=== PATIENT | male | born 1970 | race Caucasian/White ===

== ENCOUNTER 2021-11-13 20:30 | Inpatient (IN) | payer OTHER, SELFPAY ==
[~2021-11-13 20:30] MED LIST: Iopamidol-370 76% 500 ML 1 ML ONE
[2021-11-13 21:05] LABS: #Eosinphils 0.1 thou/uL (0.0-0.7); #Lymphocytes 1.2 thou/uL (1.20-3.40); #Monocytes 0.4 thou/uL (0.11-0.59); #Neutrophils 5.4 thou/uL (1.40-6.50); %Basophils 0.1 % (0.0-1.0); %Eosinophils 1.8 % (0.0-10.0); %Lymphocytes 17.1 % (21.0-51.0); %Monocytes 6.1 % (0.0-10.0); %Neutrophils 74.8 % (42.0-75.0); Hemoglobin 12.4 g/dL (14.0-18.0); Mean Corpuscular HGB CONC 33.2 g/dL (32.0-36.0); Mean Corpuscular Hemoglobin 27.6 pg (27.0-31.0); Mean Corpuscular Volume 83.3 fL (78.0-98.0); Mean Platelet Volume 8.3 fL (7.4-10.4); Platelet Count 186 thou/uL (130-400); RBC Distribution Width 15.7 % (11.5-14.5); Red Blood Cell (RBC) Count 4.49 mill/uL (4.70-6.10); White Blood Cell (WBC) Count 7.2 thou/uL (4.8-10.8)
[2021-11-13 21:15] LABS: INR-International Normal Ratio 2.4; Prothrombin Time 26.4 sec (12.0-14.7)
[2021-11-13 21:16] LABS: PTT 38.6 sec (22.9-36.1)
[2021-11-13 21:28] LABS: ALT (SGPT) 25 U/L (8-55); AST (SGOT) 20 U/L (5-34); Albumin 3.6 g/dL (3.5-5.0); Alkaline Phosphatase 113 U/L (40-110); Anion Gap 13 mmol/L (10-20); BUN (Urea Nitrogen) 18 mg/dL (8.9-20.6); Bilirubin, Total 0.8 mg/dL (0.2-1.2); Calc. Creatinine Clearance 0 mL/min (70-130); Calcium 9.5 mg/dL (7.8-10.44); Carbon Dioxide 24 mmol/L (22-29); Chloride 103 mmol/L (98-107); Globulin 3.4 g/dL (2.4-3.5); Glucose 149 mg/dL (70-105); Potassium 4.3 mmol/L (3.5-5.1); Sodium 136 mmol/L (136-145)
[2021-11-13] MEDS ORDERED: Morphine 4 MG/ML VIAL ONE (21:48)
[2021-11-13] MEDS ORDERED: Ondansetron PF 4 MG/2 ML Vial ONE (21:48)
[2021-11-13] MEDS ORDERED: Aspirin Chewable 81 MG TAB ONE (22:06)
[2021-11-13] MEDS ORDERED: Ondansetron ODT 4 MG TAB SL PRN (23:15)
[2021-11-13] MEDS ORDERED: Ondansetron PF 4 MG/2 ML Vial IVP PRN (23:15)
[2021-11-14] MEDS: Morphine 4 MG/ML VIAL SLOW IVP PRN ×3 (04:45→18:38)
[2021-11-14] MEDS ORDERED: Acetaminophen 325 MG TAB PO PRN (04:46)
[2021-11-14] MEDS ORDERED: Acetaminophen 650 MG Suppository PR PRN (04:46)
[2021-11-14] MEDS ORDERED: hydrALAZINE 20 MG/ML VIAL SLOW IVP PRN (04:49)
[2021-11-14] MEDS ORDERED: Dextrose 50% Abboject 50 ML SYRINGE SLOW IVP PRN (04:59)
[2021-11-14] MEDS ORDERED: Dextrose 5% in Water 1,000 ML IV PRN (04:59)
[2021-11-14] MEDS ORDERED: HumaLOG 300 UNITS/3 ML VIAL SC PRN (04:59)
[2021-11-14 09:59] LABS: INR-International Normal Ratio 2.3; Prothrombin Time 25.6 sec (12.0-14.7)
[2021-11-14] MEDS ORDERED: levETIRAcetam 500 MG TAB PO SCH (12:45)
[2021-11-14 19:22] LABS: SARS-CoV-2 PCR by NAA Not Detected (NotDetected)
[2021-11-14] MEDS: Atorvastatin Calcium 40 MG TAB PO SCH (20:51)
[2021-11-14] MEDS: Carvedilol 6.25 MG TAB PO SCH ×2 (20:52→20:58)
[2021-11-14] MEDS: levETIRAcetam 500 MG TAB PO SCH (20:55)
[2021-11-14] MEDS: Enoxaparin Sodium 100 MG/ML SYRINGE SC SCH (20:59)
[2021-11-14] MEDS: NPH, Human Insulin Isophane 300 UNIT/3 ML VIAL SC SCH (22:40)
[2021-11-15 05:12] LABS: #Eosinphils 0.4 thou/uL (0.0-0.7); #Lymphocytes 1.5 thou/uL (1.20-3.40); #Monocytes 0.7 thou/uL (0.11-0.59); #Neutrophils 5.1 thou/uL (1.40-6.50); %Basophils 0.4 % (0.0-1.0); %Eosinophils 5.7 % (0.0-10.0); %Lymphocytes 19.3 % (21.0-51.0); %Monocytes 8.5 % (0.0-10.0); Hemoglobin 11.4 g/dL (14.0-18.0); Mean Corpuscular HGB CONC 32.7 g/dL (32.0-36.0); Mean Corpuscular Hemoglobin 27.6 pg (27.0-31.0); Mean Corpuscular Volume 84.2 fL (78.0-98.0); Mean Platelet Volume 8.2 fL (7.4-10.4); Platelet Count 164 thou/uL (130-400); RBC Distribution Width 16.4 % (11.5-14.5); Red Blood Cell (RBC) Count 4.15 mill/uL (4.70-6.10); White Blood Cell (WBC) Count 7.7 thou/uL (4.8-10.8)
[2021-11-15 05:17] LABS: INR-International Normal Ratio 2.3; Prothrombin Time 25.9 sec (12.0-14.7)
[2021-11-15 05:32] LABS: Anion Gap 11 mmol/L (10-20); BUN (Urea Nitrogen) 16 mg/dL (8.9-20.6); Calc. Creatinine Clearance 162 mL/min (70-130); Calcium 8.7 mg/dL (7.8-10.44); Carbon Dioxide 25 mmol/L (22-29); Chloride 101 mmol/L (98-107); Cholesterol 104 mg/dl (< 200 Desired); Glucose 131 mg/dL (70-105); HDL Cholesterol 35 mg/dL (>60 Neg Risk); LDL Cholesterol, Calculated 52 mg/dL; Potassium 4.1 mmol/L (3.5-5.1); Sodium 133 mmol/L (136-145); Triglycerides 87 mg/dL (Less than 150)
[2021-11-15] MEDS: Morphine 4 MG/ML VIAL SLOW IVP PRN ×2 (06:51→15:59)
[2021-11-15] MEDS: Carvedilol 6.25 MG TAB PO SCH ×2 (10:14→21:38)
[2021-11-15] MEDS: Enoxaparin Sodium 100 MG/ML SYRINGE SC SCH ×2 (10:14→20:55)
[2021-11-15] MEDS: levETIRAcetam 500 MG TAB PO SCH ×2 (10:14→20:55)
[2021-11-15] MEDS: Lisinopril 2.5 MG TAB PO SCH (10:14)
[2021-11-15] MEDS: Spironolactone 25 MG TAB PO SCH (10:14)
[2021-11-15] MEDS: Furosemide 20 MG TAB PO SCH (10:14)
[2021-11-15] MEDS: Ascorbic Acid 500 mg Chewable Tablet PO SCH (10:14)
[2021-11-15] MEDS: NPH, Human Insulin Isophane 300 UNIT/3 ML VIAL SC SCH ×2 (10:15→21:37)
[2021-11-15] MEDS: Atorvastatin Calcium 40 MG TAB PO SCH ×2 (20:53→20:54)
[2021-11-15] MEDS ORDERED: Bisacodyl 5 MG TAB PO SCH (22:30)
[2021-11-16] MEDS: Morphine 4 MG/ML VIAL SLOW IVP PRN ×3 (02:41→21:37)
[2021-11-16 04:44] LABS: INR-International Normal Ratio 1.8; Prothrombin Time 21.5 sec (12.0-14.7)
[2021-11-16] MEDS: Ascorbic Acid 500 mg Chewable Tablet PO SCH (08:55)
[2021-11-16] MEDS: levETIRAcetam 500 MG TAB PO SCH ×2 (08:56→20:32)
[2021-11-16] MEDS: Carvedilol 6.25 MG TAB PO SCH ×2 (08:56→20:32)
[2021-11-16] MEDS: Enoxaparin Sodium 100 MG/ML SYRINGE SC SCH ×2 (08:59→20:31)
[2021-11-16] MEDS: Spironolactone 25 MG TAB PO SCH (09:00)
[2021-11-16] MEDS: Furosemide 20 MG TAB PO SCH (09:00)
[2021-11-16] MEDS ORDERED: Bisacodyl 5 MG TAB PO SCH (09:00)
[2021-11-16] MEDS: NPH, Human Insulin Isophane 300 UNIT/3 ML VIAL SC SCH ×2 (09:01→20:32)
[2021-11-16] MEDS: HumaLOG 300 UNITS/3 ML VIAL SC PRN ×2 (09:01→11:51)
[2021-11-16] MEDS: Lisinopril 2.5 MG TAB PO SCH (09:02)
[2021-11-16] MEDS: Bisacodyl 5 MG TAB PO SCH (09:03)
[2021-11-16] MEDS: Atorvastatin Calcium 40 MG TAB PO SCH (20:32)
[2021-11-17] MEDS: Morphine 4 MG/ML VIAL SLOW IVP PRN ×3 (05:18→20:50)
[2021-11-17 05:41] LABS: #Eosinphils 0.2 thou/uL (0.0-0.7); #Lymphocytes 1.1 thou/uL (1.20-3.40); #Monocytes 0.3 thou/uL (0.11-0.59); #Neutrophils 4.1 thou/uL (1.40-6.50); %Basophils 0.5 % (0.0-1.0); %Eosinophils 3.5 % (0.0-10.0); %Lymphocytes 19.4 % (21.0-51.0); %Monocytes 5.4 % (0.0-10.0); %Neutrophils 71.2 % (42.0-75.0); Hemoglobin 11.3 g/dL (14.0-18.0); Mean Corpuscular Hemoglobin 27.1 pg (27.0-31.0); Mean Corpuscular Volume 84.7 fL (78.0-98.0); Mean Platelet Volume 8.3 fL (7.4-10.4); Platelet Count 168 thou/uL (130-400); RBC Distribution Width 16.3 % (11.5-14.5); Red Blood Cell (RBC) Count 4.17 mill/uL (4.70-6.10); White Blood Cell (WBC) Count 5.8 thou/uL (4.8-10.8)
[2021-11-17 05:48] LABS: INR-International Normal Ratio 1.4; Prothrombin Time 17.6 sec (12.0-14.7)
[2021-11-17 06:11] LABS: Anion Gap 12 mmol/L (10-20); BUN (Urea Nitrogen) 16 mg/dL (8.9-20.6); Calc. Creatinine Clearance 168 mL/min (70-130); Calcium 8.6 mg/dL (7.8-10.44); Carbon Dioxide 24 mmol/L (22-29); Chloride 104 mmol/L (98-107); Glucose 121 mg/dL (70-105); Potassium 4.1 mmol/L (3.5-5.1); Sodium 136 mmol/L (136-145)
[2021-11-17] MEDS: NPH, Human Insulin Isophane 300 UNIT/3 ML VIAL SC SCH ×2 (15:25→20:43)
[2021-11-17] MEDS: Lisinopril 2.5 MG TAB PO SCH (15:27)
[2021-11-17] MEDS: Ascorbic Acid 500 mg Chewable Tablet PO SCH (15:28)
[2021-11-17] MEDS: levETIRAcetam 500 MG TAB PO SCH ×2 (15:28→20:42)
[2021-11-17] MEDS: Furosemide 20 MG TAB PO SCH (15:28)
[2021-11-17] MEDS: Spironolactone 25 MG TAB PO SCH (15:28)
[2021-11-17] MEDS: Bisacodyl 5 MG TAB PO SCH (15:29)
[2021-11-17] MEDS: Carvedilol 6.25 MG TAB PO SCH ×2 (15:29→20:41)
[2021-11-17] MEDS: HumaLOG 300 UNITS/3 ML VIAL SC PRN (17:36)
[2021-11-17] MEDS: Atorvastatin Calcium 40 MG TAB PO SCH (20:42)
[2021-11-18] MEDS: Morphine 4 MG/ML VIAL SLOW IVP PRN ×2 (05:09→10:02)
[2021-11-18] MEDS: Bisacodyl 5 MG TAB PO SCH (09:58)
[2021-11-18] MEDS: NPH, Human Insulin Isophane 300 UNIT/3 ML VIAL SC SCH ×2 (10:04→20:56)
[2021-11-18] MEDS: Ascorbic Acid 500 mg Chewable Tablet PO SCH (10:05)
[2021-11-18] MEDS: Furosemide 20 MG TAB PO SCH (10:05)
[2021-11-18] MEDS: Carvedilol 6.25 MG TAB PO SCH ×2 (10:05→20:56)
[2021-11-18] MEDS: Lisinopril 2.5 MG TAB PO SCH (10:06)
[2021-11-18] MEDS: levETIRAcetam 500 MG TAB PO SCH ×2 (10:06→20:56)
[2021-11-18] MEDS: Spironolactone 25 MG TAB PO SCH (10:06)
[2021-11-18 13:25] LABS: INR-International Normal Ratio 1.3; Prothrombin Time 16.8 sec (12.0-14.7)
[2021-11-18] MEDS: HYDROcodone/Acetaminophen 5/325 mg Tablet PO PRN ×2 (15:38→21:00)
[2021-11-18] MEDS: Warfarin Sodium 2 MG TAB PO SCH (16:21)
[2021-11-18] MEDS: Atorvastatin Calcium 40 MG TAB PO SCH (20:56)
[2021-11-18] MEDS: Enoxaparin Sodium 100 MG/ML SYRINGE SC SCH (20:58)
[2021-11-19] MEDS: Morphine 4 MG/ML VIAL SLOW IVP PRN ×2 (05:04→21:06)
[2021-11-19 05:15] LABS: INR-International Normal Ratio 1.4
[2021-11-19] MEDS ORDERED: Non-Formulary Item 1 EACH (Warfarin Sodium [Warfarin Sodium] 4 MG Tablet) PO SCH (09:00)
[2021-11-19] MEDS: Furosemide 20 MG TAB PO SCH (09:02)
[2021-11-19] MEDS: Ascorbic Acid 500 mg Chewable Tablet PO SCH (09:02)
[2021-11-19] MEDS: Lisinopril 2.5 MG TAB PO SCH (09:02)
[2021-11-19] MEDS: Spironolactone 25 MG TAB PO SCH (09:02)
[2021-11-19] MEDS: Enoxaparin Sodium 100 MG/ML SYRINGE SC SCH ×3 (09:03→21:06)
[2021-11-19] MEDS: levETIRAcetam 500 MG TAB PO SCH ×2 (09:03→21:06)
[2021-11-19] MEDS: Bisacodyl 5 MG TAB PO SCH (09:03)
[2021-11-19] MEDS: Carvedilol 6.25 MG TAB PO SCH ×2 (09:03→21:07)
[2021-11-19] MEDS: NPH, Human Insulin Isophane 300 UNIT/3 ML VIAL SC SCH ×2 (09:06→21:05)
[2021-11-19] MEDS: HYDROcodone/Acetaminophen 5/325 mg Tablet PO PRN ×2 (09:27→18:30)
[2021-11-19] MEDS: Warfarin Sodium 2 MG TAB PO SCH (18:31)
[2021-11-19] MEDS: Atorvastatin Calcium 40 MG TAB PO SCH (21:05)
[2021-11-19] MEDS ORDERED: Polyethylene Glycol 3350 17 GM Packet PO SCH (21:41)
[2021-11-20] MEDS: HYDROcodone/Acetaminophen 5/325 mg Tablet PO PRN ×3 (02:41→14:29)
[2021-11-20 05:55] LABS: INR-International Normal Ratio 1.5; Prothrombin Time 17.9 sec (12.0-14.7)
[2021-11-20] MEDS: NPH, Human Insulin Isophane 300 UNIT/3 ML VIAL SC SCH ×2 (08:53→23:25)
[2021-11-20] MEDS: Enoxaparin Sodium 100 MG/ML SYRINGE SC SCH ×2 (08:54→21:32)
[2021-11-20] MEDS: Bisacodyl 5 MG TAB PO SCH (08:54)
[2021-11-20] MEDS: Carvedilol 6.25 MG TAB PO SCH ×2 (08:56→21:31)
[2021-11-20] MEDS: Ascorbic Acid 500 mg Chewable Tablet PO SCH (08:56)
[2021-11-20] MEDS: Spironolactone 25 MG TAB PO SCH (08:57)
[2021-11-20] MEDS: Furosemide 20 MG TAB PO SCH (08:57)
[2021-11-20] MEDS: levETIRAcetam 500 MG TAB PO SCH ×2 (08:57→21:31)
[2021-11-20] MEDS: Lisinopril 2.5 MG TAB PO SCH (08:57)
[2021-11-20] MEDS: HumaLOG 300 UNITS/3 ML VIAL SC PRN (11:43)
[2021-11-20] MEDS: Warfarin Sodium 5 MG TAB PO SCH (17:40)
[2021-11-20] MEDS: Morphine 4 MG/ML VIAL SLOW IVP PRN (21:28)
[2021-11-20] MEDS: Atorvastatin Calcium 40 MG TAB PO SCH (21:30)
[2021-11-21 05:46] LABS: INR-International Normal Ratio 1.4; Prothrombin Time 17.4 sec (12.0-14.7)
[2021-11-21] MEDS: Morphine 4 MG/ML VIAL SLOW IVP PRN ×2 (07:58→21:27)
[2021-11-21] MEDS: Bisacodyl 5 MG TAB PO SCH (08:26)
[2021-11-21] MEDS: Ascorbic Acid 500 mg Chewable Tablet PO SCH (08:27)
[2021-11-21] MEDS: Carvedilol 6.25 MG TAB PO SCH ×2 (08:27→20:56)
[2021-11-21] MEDS: levETIRAcetam 500 MG TAB PO SCH ×2 (08:39→20:55)
[2021-11-21] MEDS: Spironolactone 25 MG TAB PO SCH (08:39)
[2021-11-21] MEDS: Lisinopril 2.5 MG TAB PO SCH (08:39)
[2021-11-21] MEDS: Furosemide 20 MG TAB PO SCH (08:39)
[2021-11-21] MEDS: Polyethylene Glycol 3350 17 GM Packet PO SCH (08:41)
[2021-11-21] MEDS: NPH, Human Insulin Isophane 300 UNIT/3 ML VIAL SC SCH ×2 (08:51→20:56)
[2021-11-21] MEDS: HYDROcodone/Acetaminophen 5/325 mg Tablet PO PRN ×2 (11:26→17:00)
[2021-11-21] MEDS: Enoxaparin Sodium 100 MG/ML SYRINGE SC SCH ×2 (11:27→20:56)
[2021-11-21] MEDS: metFORMIN 500 MG TAB PO SCH (17:00)
[2021-11-21] MEDS: Warfarin Sodium 5 MG TAB PO SCH (17:01)
[2021-11-21 18:10] LABS: SARS-CoV-2 PCR by NAA Not Detected (NotDetected)
[2021-11-21] MEDS: Atorvastatin Calcium 40 MG TAB PO SCH (20:55)
[2021-11-22] MEDS: HYDROcodone/Acetaminophen 5/325 mg Tablet PO PRN ×2 (01:46→09:12)
[2021-11-22 05:36] LABS: INR-International Normal Ratio 1.4
[2021-11-22] MEDS: Enoxaparin Sodium 100 MG/ML SYRINGE SC SCH ×2 (08:48→20:02)
[2021-11-22] MEDS: Carvedilol 6.25 MG TAB PO SCH ×2 (08:49→20:02)
[2021-11-22] MEDS: Multivit, Therapeutic 1 TAB PO SCH (08:50)
[2021-11-22] MEDS: Lisinopril 2.5 MG TAB PO SCH (08:50)
[2021-11-22] MEDS: Aspirin 81 mg Enteric Coated Tablet PO SCH (08:50)
[2021-11-22] MEDS: Spironolactone 25 MG TAB PO SCH (08:50)
[2021-11-22] MEDS: metFORMIN 500 MG TAB PO SCH ×2 (08:50→17:26)
[2021-11-22] MEDS: Furosemide 20 MG TAB PO SCH (08:50)
[2021-11-22] MEDS: levETIRAcetam 500 MG TAB PO SCH ×2 (08:50→20:02)
[2021-11-22] MEDS: Ascorbic Acid 500 mg Chewable Tablet PO SCH (08:50)
[2021-11-22] MEDS: Bisacodyl 5 MG TAB PO SCH (08:56)
[2021-11-22] MEDS: Polyethylene Glycol 3350 17 GM Packet PO SCH (08:57)
[2021-11-22] MEDS: NPH, Human Insulin Isophane 300 UNIT/3 ML VIAL SC SCH ×2 (09:01→20:03)
[2021-11-22] MEDS: Morphine 4 MG/ML VIAL SLOW IVP PRN ×2 (14:35→20:02)
[2021-11-22] MEDS: Warfarin Sodium 5 MG TAB PO SCH (17:26)
[2021-11-22] MEDS ORDERED: ceFAZolin 2 GM/Dextrose 50 ML 2 GM in Premix Bag 1 BAG IVPB SCH (19:00)
[2021-11-22] MEDS: Atorvastatin Calcium 40 MG TAB PO SCH (20:02)
[2021-11-23] MEDS: HYDROcodone/Acetaminophen 5/325 mg Tablet PO PRN ×3 (03:08→17:23)
[2021-11-23 07:13] LABS: INR-International Normal Ratio 1.5; Prothrombin Time 18.5 sec (12.0-14.7)
[2021-11-23] MEDS: Bisacodyl 5 MG TAB PO SCH (08:56)
[2021-11-23] MEDS: Polyethylene Glycol 3350 17 GM Packet PO SCH (08:56)
[2021-11-23] MEDS: NPH, Human Insulin Isophane 300 UNIT/3 ML VIAL SC SCH ×2 (08:56→21:11)
[2021-11-23] MEDS: Morphine 4 MG/ML VIAL SLOW IVP PRN ×2 (09:12→21:57)
[2021-11-23] MEDS: Enoxaparin Sodium 100 MG/ML SYRINGE SC SCH ×2 (09:14→21:12)
[2021-11-23] MEDS: Aspirin 81 mg Enteric Coated Tablet PO SCH (09:22)
[2021-11-23] MEDS: Multivit, Therapeutic 1 TAB PO SCH (09:23)
[2021-11-23] MEDS: levETIRAcetam 500 MG TAB PO SCH ×2 (09:23→21:10)
[2021-11-23] MEDS: Ascorbic Acid 500 mg Chewable Tablet PO SCH (09:23)
[2021-11-23] MEDS: Lisinopril 2.5 MG TAB PO SCH (09:23)
[2021-11-23] MEDS: Carvedilol 6.25 MG TAB PO SCH ×2 (09:23→21:10)
[2021-11-23] MEDS: Furosemide 20 MG TAB PO SCH (09:23)
[2021-11-23] MEDS: metFORMIN 500 MG TAB PO SCH ×2 (09:23→17:22)
[2021-11-23] MEDS: Spironolactone 25 MG TAB PO SCH (09:23)
[2021-11-23] MEDS: Atorvastatin Calcium 40 MG TAB PO SCH (21:10)
[2021-11-24] MEDS: Morphine 4 MG/ML VIAL SLOW IVP PRN ×4 (02:16→23:01)
[2021-11-24 05:27] LABS: #Eosinphils 0.3 thou/uL (0.0-0.7); #Lymphocytes 1.5 thou/uL (1.20-3.40); #Monocytes 0.6 thou/uL (0.11-0.59); %Basophils 0.9 % (0.0-1.0); %Lymphocytes 27.1 % (21.0-51.0); %Monocytes 11.7 % (0.0-10.0); %Neutrophils 55.2 % (42.0-75.0); Hemoglobin 12.7 g/dL (14.0-18.0); Mean Corpuscular HGB CONC 32.2 g/dL (32.0-36.0); Mean Corpuscular Hemoglobin 27.4 pg (27.0-31.0); Mean Corpuscular Volume 85.1 fL (78.0-98.0); Mean Platelet Volume 7.2 fL (7.4-10.4); Platelet Count 282 thou/uL (130-400); RBC Distribution Width 16.7 % (11.5-14.5); Red Blood Cell (RBC) Count 4.63 mill/uL (4.70-6.10); White Blood Cell (WBC) Count 5.4 thou/uL (4.8-10.8)
[2021-11-24 05:55] LABS: Anion Gap 8 mmol/L (10-20); BUN (Urea Nitrogen) 16 mg/dL (8.9-20.6); Calc. Creatinine Clearance 178 mL/min (70-130); Calcium 9.1 mg/dL (7.8-10.44); Carbon Dioxide 29 mmol/L (22-29); Chloride 103 mmol/L (98-107); Glucose 134 mg/dL (70-105); Potassium 4.2 mmol/L (3.5-5.1); Sodium 136 mmol/L (136-145)
[2021-11-24] MEDS: NPH, Human Insulin Isophane 300 UNIT/3 ML VIAL SC SCH ×2 (08:00→20:08)
[2021-11-24] MEDS ORDERED: Fentanyl 100 MCG/2 ML VIAL ONE (12:43)
[2021-11-24] MEDS ORDERED: PROPOFOL 200 MG/20 ML VIAL ONE (13:04)
[2021-11-24] MEDS ORDERED: Lidocaine 1% PF 5 ML VIAL ONE (13:04)
[2021-11-24] MEDS ORDERED: Ketamine 50 MG/ML (10ML VIAL) ONE (13:14)
[2021-11-24] MEDS ORDERED: Midazolam HCl 2 mg/2 ml Vial ONE (13:14)
[2021-11-24] MEDS ORDERED: Lidocaine 1% w/Epinephrine 1:100K 30 ML VIAL ONE (13:17)
[2021-11-24] MEDS ORDERED: Bupivacaine PF 0.5% 30 ML VIAL ONE (13:17)
[2021-11-24] MEDS: metFORMIN 500 MG TAB PO SCH ×2 (13:39→17:55)
[2021-11-24] MEDS: Aspirin 81 mg Enteric Coated Tablet PO SCH (13:40)
[2021-11-24] MEDS: Ascorbic Acid 500 mg Chewable Tablet PO SCH (13:40)
[2021-11-24] MEDS: Carvedilol 6.25 MG TAB PO SCH ×2 (13:41→20:11)
[2021-11-24] MEDS: Bisacodyl 5 MG TAB PO SCH ×2 (13:41→19:54)
[2021-11-24] MEDS: Multivit, Therapeutic 1 TAB PO SCH (13:42)
[2021-11-24] MEDS ORDERED: Ondansetron HCl/PF 4 MG/2 ML Vial IVP PRN (13:47)
[2021-11-24] MEDS ORDERED: Promethazine HCl 25 MG/ML VIAL IVPB PRN (13:47)
[2021-11-24] MEDS ORDERED: Promethazine HCl 25 MG/ML VIAL IM PRN (13:47)
[2021-11-24] MEDS: Polyethylene Glycol 3350 17 GM Packet PO SCH ×2 (13:48→19:54)
[2021-11-24] MEDS: Furosemide 20 MG TAB PO SCH (13:48)
[2021-11-24] MEDS: Spironolactone 25 MG TAB PO SCH (13:49)
[2021-11-24] MEDS: levETIRAcetam 500 MG TAB PO SCH ×2 (14:49→20:10)
[2021-11-24] MEDS: Lisinopril 2.5 MG TAB PO SCH (14:49)
[2021-11-24] MEDS: HYDROcodone/Acetaminophen 5/325 mg Tablet PO PRN (17:55)
[2021-11-24] MEDS: Atorvastatin Calcium 40 MG TAB PO SCH (20:10)
[2021-11-24] MEDS: Enoxaparin Sodium 100 MG/ML SYRINGE SC SCH ×2 (20:10→20:16)
[2021-11-24] MEDS ORDERED: Enoxaparin Sodium 100 MG/ML SYRINGE SC SCH (21:00)
[2021-11-24] MEDS: Ondansetron PF 4 MG/2 ML Vial IVP PRN (23:03)
[2021-11-25] MEDS: Morphine 4 MG/ML VIAL SLOW IVP PRN ×5 (03:19→21:57)
[2021-11-25 05:22] LABS: INR-International Normal Ratio 1.5; Prothrombin Time 18.1 sec (12.0-14.7)
[2021-11-25] MEDS: levETIRAcetam 500 MG TAB PO SCH ×2 (09:21→20:28)
[2021-11-25] MEDS: Multivit, Therapeutic 1 TAB PO SCH (09:21)
[2021-11-25] MEDS: Aspirin 81 mg Enteric Coated Tablet PO SCH (09:21)
[2021-11-25] MEDS: Ascorbic Acid 500 mg Chewable Tablet PO SCH (09:21)
[2021-11-25] MEDS: metFORMIN 500 MG TAB PO SCH ×2 (09:22→17:31)
[2021-11-25] MEDS: Bisacodyl 5 MG TAB PO SCH (09:22)
[2021-11-25] MEDS: Polyethylene Glycol 3350 17 GM Packet PO SCH (09:23)
[2021-11-25] MEDS: NPH, Human Insulin Isophane 300 UNIT/3 ML VIAL SC SCH ×2 (09:25→20:51)
[2021-11-25] MEDS: HYDROcodone/Acetaminophen 5/325 mg Tablet PO PRN ×2 (09:26→14:35)
[2021-11-25] MEDS ORDERED: Sodium Chloride 0.9% 500 ML IV SCH (09:45)
[2021-11-25] MEDS ORDERED: Lisinopril 2.5 MG TAB PO SCH (10:00)
[2021-11-25] MEDS ORDERED: Carvedilol 6.25 MG TAB PO SCH (10:00)
[2021-11-25] MEDS ORDERED: Spironolactone 25 MG TAB PO SCH (10:00)
[2021-11-25 10:25] VITALS: BMI 26.0
[2021-11-25] MEDS ORDERED: ceFAZolin 2 GM/Dextrose 50 ML 2 GM in Premix Bag 1 BAG IVPB SCH (10:30)
[2021-11-25] MEDS: Lisinopril 2.5 MG TAB PO SCH (11:14)
[2021-11-25] MEDS: Carvedilol 6.25 MG TAB PO SCH ×2 (11:14→21:42)
[2021-11-25] MEDS: Spironolactone 25 MG TAB PO SCH (11:15)
[2021-11-25] MEDS: Furosemide 20 MG TAB PO SCH (11:38)
[2021-11-25] MEDS ORDERED: Warfarin Sodium 5 MG TAB PO SCH (17:00)
[2021-11-25] MEDS: Ondansetron PF 4 MG/2 ML Vial IVP PRN ×2 (17:45→20:43)
[2021-11-25] MEDS: Atorvastatin Calcium 40 MG TAB PO SCH (20:48)
[2021-11-26] MEDS: HYDROcodone/Acetaminophen 5/325 mg Tablet PO PRN ×3 (00:36→22:55)
[2021-11-26] MEDS: Morphine 4 MG/ML VIAL SLOW IVP PRN ×3 (03:02→18:46)
[2021-11-26 08:38] LABS: #Eosinphils 0.4 thou/uL (0.0-0.7); #Lymphocytes 1.3 thou/uL (1.20-3.40); #Neutrophils 4.2 thou/uL (1.40-6.50); %Basophils 0.3 % (0.0-1.0); %Lymphocytes 19.1 % (21.0-51.0); %Monocytes 14.8 % (0.0-10.0); %Neutrophils 59.9 % (42.0-75.0); Hemoglobin 10.9 g/dL (14.0-18.0); Mean Corpuscular HGB CONC 31.9 g/dL (32.0-36.0); Mean Corpuscular Volume 84.6 fL (78.0-98.0); Mean Platelet Volume 7.2 fL (7.4-10.4); Platelet Count 272 thou/uL (130-400); RBC Distribution Width 16.4 % (11.5-14.5); Red Blood Cell (RBC) Count 4.06 mill/uL (4.70-6.10)
[2021-11-26 08:40] LABS: INR-International Normal Ratio 1.4; Prothrombin Time 17.6 sec (12.0-14.7)
[2021-11-26] MEDS: Polyethylene Glycol 3350 17 GM Packet PO SCH (08:46)
[2021-11-26] MEDS: Multivit, Therapeutic 1 TAB PO SCH (08:46)
[2021-11-26] MEDS: Ascorbic Acid 500 mg Chewable Tablet PO SCH (08:47)
[2021-11-26] MEDS: Carvedilol 6.25 MG TAB PO SCH ×2 (08:47→22:50)
[2021-11-26] MEDS: Furosemide 20 MG TAB PO SCH (08:47)
[2021-11-26] MEDS: Spironolactone 25 MG TAB PO SCH (08:47)
[2021-11-26] MEDS: Lisinopril 2.5 MG TAB PO SCH (08:48)
[2021-11-26] MEDS: Bisacodyl 5 MG TAB PO SCH (08:48)
[2021-11-26] MEDS: levETIRAcetam 500 MG TAB PO SCH ×2 (08:48→22:51)
[2021-11-26] MEDS: metFORMIN 500 MG TAB PO SCH ×2 (08:48→18:50)
[2021-11-26 08:51] LABS: Anion Gap 12 mmol/L (10-20); BUN (Urea Nitrogen) 25 mg/dL (8.9-20.6); Calc. Creatinine Clearance 159 mL/min (70-130); Calcium 8.8 mg/dL (7.8-10.44); Carbon Dioxide 26 mmol/L (22-29); Chloride 101 mmol/L (98-107); Glucose 162 mg/dL (70-105); Potassium 4.6 mmol/L (3.5-5.1); Sodium 134 mmol/L (136-145)
[2021-11-26] MEDS: Aspirin 81 mg Enteric Coated Tablet PO SCH (08:56)
[2021-11-26] MEDS: NPH, Human Insulin Isophane 300 UNIT/3 ML VIAL SC SCH ×2 (08:57→23:01)
[2021-11-26] MEDS: Lactated Ringer's 1,000 ML IV SCH ×2 (10:56→22:49)
[2021-11-26] MEDS ORDERED: EPINEPHrine 1 MG/ML AMP ONE (16:15)
[2021-11-26] MEDS ORDERED: Bupivacaine PF 0.5% 30 ML VIAL ONE (16:15)
[2021-11-26] MEDS ORDERED: Fentanyl 100 MCG/2 ML VIAL ONE ×2 (16:19→17:54)
[2021-11-26] MEDS ORDERED: Midazolam HCl 2 mg/2 ml Vial ONE (16:19)
[2021-11-26] MEDS ORDERED: Propofol 500 MG/50 ML VIAL ONE ×2 (16:20→16:22)
[2021-11-26] MEDS ORDERED: Ketamine 50 MG/ML (10ML VIAL) ONE (16:20)
[2021-11-26] MEDS ORDERED: Ondansetron HCl/PF 4 MG/2 ML Vial IVP PRN (17:25)
[2021-11-26] MEDS ORDERED: Promethazine HCl 25 MG/ML VIAL IM PRN (17:25)
[2021-11-26] MEDS ORDERED: Morphine Sulfate 2 MG/ML SYRINGE SLOW IVP PRN (17:25)
[2021-11-26] MEDS ORDERED: PACU-Morphine 4MG/ML VIAL SLOW IVP PRN (17:25)
[2021-11-26] MEDS ORDERED: HYDROmorphone 2 MG/ML VIAL SLOW IVP PRN (17:25)
[2021-11-26] MEDS ORDERED: Promethazine HCl 25 MG/ML VIAL IVPB PRN (17:25)
[2021-11-26] MEDS: Atorvastatin Calcium 40 MG TAB PO SCH (22:51)
[2021-11-26] MEDS: Ondansetron PF 4 MG/2 ML Vial IVP PRN (22:56)
[2021-11-27] MEDS: Morphine 4 MG/ML VIAL SLOW IVP PRN ×5 (01:37→20:29)
[2021-11-27 05:26] LABS: INR-International Normal Ratio 1.3; Prothrombin Time 16.5 sec (12.0-14.7)
[2021-11-27] MEDS: Ascorbic Acid 500 mg Chewable Tablet PO SCH (09:25)
[2021-11-27] MEDS: Spironolactone 25 MG TAB PO SCH (09:25)
[2021-11-27] MEDS: metFORMIN 500 MG TAB PO SCH ×2 (09:25→17:59)
[2021-11-27] MEDS: Aspirin 81 mg Enteric Coated Tablet PO SCH (09:25)
[2021-11-27] MEDS: levETIRAcetam 500 MG TAB PO SCH ×2 (09:25→20:29)
[2021-11-27] MEDS: Furosemide 20 MG TAB PO SCH (09:25)
[2021-11-27] MEDS: Carvedilol 6.25 MG TAB PO SCH ×2 (09:26→20:29)
[2021-11-27] MEDS: Lisinopril 2.5 MG TAB PO SCH (09:26)
[2021-11-27] MEDS: Bisacodyl 5 MG TAB PO SCH (09:26)
[2021-11-27] MEDS: Multivit, Therapeutic 1 TAB PO SCH (09:26)
[2021-11-27] MEDS: Polyethylene Glycol 3350 17 GM Packet PO SCH (09:27)
[2021-11-27] MEDS: NPH, Human Insulin Isophane 300 UNIT/3 ML VIAL SC SCH ×2 (09:27→20:33)
[2021-11-27] MEDS: Lactated Ringer's 1,000 ML IV SCH (09:28)
[2021-11-27] MEDS ORDERED: Milk Of Magnesia 30 ML UDCUP PO PRN (10:49)
[2021-11-27] MEDS ORDERED: Bisacodyl 10 MG SUPP PR PRN (10:49)
[2021-11-27] MEDS: Warfarin Sodium 5 MG TAB PO SCH (18:00)
[2021-11-27] MEDS: Atorvastatin Calcium 40 MG TAB PO SCH (20:29)
[2021-11-27] MEDS ORDERED: Enoxaparin Sodium 100 MG/ML SYRINGE SC SCH (21:00)
[2021-11-28] MEDS: Morphine 4 MG/ML VIAL SLOW IVP PRN ×4 (00:26→14:19)
[2021-11-28] MEDS: Lactated Ringer's 1,000 ML IV SCH ×2 (04:36→17:42)
[2021-11-28 04:42] LABS: #Eosinphils 0.4 thou/uL (0.0-0.7); #Lymphocytes 1.3 thou/uL (1.20-3.40); #Monocytes 0.7 thou/uL (0.11-0.59); #Neutrophils 4.7 thou/uL (1.40-6.50); %Basophils 0.6 % (0.0-1.0); %Eosinophils 5.2 % (0.0-10.0); %Lymphocytes 18.5 % (21.0-51.0); %Monocytes 9.7 % (0.0-10.0); %Neutrophils 66.1 % (42.0-75.0); Mean Corpuscular HGB CONC 32.6 g/dL (32.0-36.0); Mean Platelet Volume 7.1 fL (7.4-10.4); Platelet Count 249 thou/uL (130-400); RBC Distribution Width 16.1 % (11.5-14.5); Red Blood Cell (RBC) Count 3.57 mill/uL (4.70-6.10); White Blood Cell (WBC) Count 7.2 thou/uL (4.8-10.8)
[2021-11-28 04:48] LABS: INR-International Normal Ratio 1.1; Prothrombin Time 14.6 sec (12.0-14.7)
[2021-11-28 05:03] LABS: Anion Gap 12 mmol/L (10-20); BUN (Urea Nitrogen) 19 mg/dL (8.9-20.6); Calc. Creatinine Clearance 180 mL/min (70-130); Calcium 8.8 mg/dL (7.8-10.44); Carbon Dioxide 27 mmol/L (22-29); Chloride 102 mmol/L (98-107); Glucose 127 mg/dL (70-105); Potassium 4.3 mmol/L (3.5-5.1); Sodium 137 mmol/L (136-145)
[2021-11-28] MEDS: Polyethylene Glycol 3350 17 GM Packet PO SCH (09:03)
[2021-11-28] MEDS: levETIRAcetam 500 MG TAB PO SCH ×2 (09:04→20:06)
[2021-11-28] MEDS: Lisinopril 2.5 MG TAB PO SCH (09:04)
[2021-11-28] MEDS: Aspirin 81 mg Enteric Coated Tablet PO SCH (09:04)
[2021-11-28] MEDS: Ascorbic Acid 500 mg Chewable Tablet PO SCH (09:04)
[2021-11-28] MEDS: Enoxaparin Sodium 100 MG/ML SYRINGE SC SCH ×2 (09:05→20:05)
[2021-11-28] MEDS: metFORMIN 500 MG TAB PO SCH ×2 (09:05→17:38)
[2021-11-28] MEDS: Multivit, Therapeutic 1 TAB PO SCH (09:05)
[2021-11-28] MEDS: Carvedilol 6.25 MG TAB PO SCH ×2 (09:05→20:05)
[2021-11-28] MEDS: Spironolactone 25 MG TAB PO SCH (09:05)
[2021-11-28] MEDS: Furosemide 20 MG TAB PO SCH (09:05)
[2021-11-28] MEDS: Bisacodyl 5 MG TAB PO SCH (09:06)
[2021-11-28] MEDS: NPH, Human Insulin Isophane 300 UNIT/3 ML VIAL SC SCH ×2 (09:06→20:10)
[2021-11-28 15:39] LABS: SARS-CoV-2 PCR by NAA Not Detected (NotDetected)
[2021-11-28] MEDS: Warfarin Sodium 5 MG TAB PO SCH (17:38)
[2021-11-28] MEDS: Atorvastatin Calcium 40 MG TAB PO SCH (20:06)
[2021-11-28] MEDS: HYDROcodone/Acetaminophen 5/325 mg Tablet PO PRN (20:06)
[2021-11-29] MEDS: Morphine 4 MG/ML VIAL SLOW IVP PRN ×2 (00:26→04:44)
[2021-11-29 05:42] LABS: INR-International Normal Ratio 1.3; Prothrombin Time 16.4 sec (12.0-14.7)
[2021-11-29] MEDS: HYDROcodone/Acetaminophen 5/325 mg Tablet PO PRN ×2 (08:24→13:07)
[2021-11-29] MEDS: Aspirin 81 mg Enteric Coated Tablet PO SCH (08:25)
[2021-11-29] MEDS: Ascorbic Acid 500 mg Chewable Tablet PO SCH (08:25)
[2021-11-29] MEDS: Lisinopril 2.5 MG TAB PO SCH (08:26)
[2021-11-29] MEDS: metFORMIN 500 MG TAB PO SCH (08:26)
[2021-11-29] MEDS: Carvedilol 6.25 MG TAB PO SCH (08:26)
[2021-11-29] MEDS: Spironolactone 25 MG TAB PO SCH (08:26)
[2021-11-29] MEDS: Furosemide 20 MG TAB PO SCH (08:26)
[2021-11-29] MEDS: Multivit, Therapeutic 1 TAB PO SCH (08:26)
[2021-11-29] MEDS: Bisacodyl 5 MG TAB PO SCH (08:27)
[2021-11-29] MEDS: levETIRAcetam 500 MG TAB PO SCH (08:27)
[2021-11-29] MEDS: Enoxaparin Sodium 100 MG/ML SYRINGE SC SCH (08:27)
[2021-11-29] MEDS: Polyethylene Glycol 3350 17 GM Packet PO SCH (08:28)
[2021-11-29] MEDS: NPH, Human Insulin Isophane 300 UNIT/3 ML VIAL SC SCH (08:28)
[2021-11-29 13:15] VITALS: BP 134/77; TEMP 98.1
== END 2021-11-29 13:40 | disposition home or self-care (01) | DRG 516 ==
LOC: ERS 20:30 → NEURO 22:17 → OBSVTOIN 11-14 14:12
PROVIDERS: ADMIT Student in an Organized Health Care Education/Training Program; ATTEND Internal Medicine
PROC: 07B53ZX Excision of Right Axillary Lymphatic, Percutaneous Approach, Diagnostic (ICD-10-PCS; 2021-11-18)
PROC: 07B50ZX Excision of Right Axillary Lymphatic, Open Approach, Diagnostic (ICD-10-PCS; principal; 2021-11-24)
PROC: 0JC40ZZ Extirpation of Matter from Right Neck Subcutaneous Tissue and Fascia, Open Approach (ICD-10-PCS; 2021-11-26)
PROC: 0WB60ZX Excision of Neck, Open Approach, Diagnostic (ICD-10-PCS; 2021-11-26)
DX: D21.0 Benign neoplasm of connective and other soft tissue of head, face and neck (principal); S32.010A Wedge compression fracture of first lumbar vertebra, initial encounter for closed fracture; I69.351 Hemiplegia and hemiparesis following cerebral infarction affecting right dominant side; I42.9 Cardiomyopathy, unspecified; I50.22 Chronic systolic (congestive) heart failure; L76.32 Postprocedural hematoma of skin and subcutaneous tissue following other procedure; G40.909 Epilepsy, unspecified, not intractable, without status epilepticus; Z20.822 Contact with and (suspected) exposure to COVID-19; I44.0 Atrioventricular block, first degree; I11.0 Hypertensive heart disease with heart failure; E78.5 Hyperlipidemia, unspecified; I51.3 Intracardiac thrombosis, not elsewhere classified; W19.XXXA Unspecified fall, initial encounter; G93.89 Other specified disorders of brain; E11.69 Type 2 diabetes mellitus with other specified complication; E66.9 Obesity, unspecified; K59.00 Constipation, unspecified; Z79.4 Long term (current) use of insulin; Z79.84 Long term (current) use of oral hypoglycemic drugs; Z79.01 Long term (current) use of anticoagulants; Z79.899 Other long term (current) drug therapy; Z86.711 Personal history of pulmonary embolism; Z90.09 Acquired absence of other part of head and neck; Z68.29 Body mass index [BMI] 29.0-29.9, adult; Y83.9 Surgical procedure, unspecified as the cause of abnormal reaction of the patient, or of later complication, without mention of misadventure at the time of the procedure
CPT/HCPCS: 10005; 36415; 36416; 70450; 70496; 70498; 70551; 71260; 72131; 74177; 80048; 80053; 80061; 84484; 85025; 85610; 85730; 88184; 88185; 88305; 88307; 88313; 88323; 88341; 88342; 88360; 93005; 94760; 95712; 95819; 95957; 96374; 96375; 96376; G0378; J0171; J1650; J1815; J2250; J2270; J2405; J2704; J3010; J7030; J7120; Q9967; S0020; U0003; U0005

== ENCOUNTER 2022-03-04 08:10 | Outpatient (CLI) | payer BC ==
[~2022-03-04 08:10] MED LIST changes: +Iopamidol 370 76% 100 ML VIAL ONE; -Iopamidol-370 76% 500 ML 1 ML ONE
== END 2022-03-04 08:11 | disposition home or self-care (01) ==
LOC: CT 08:10
PROVIDERS: ATTEND Internal Medicine Hematology & Oncology
DX: D48.1 Neoplasm of uncertain behavior of connective and other soft tissue (principal); R59.0 Localized enlarged lymph nodes; K80.20 Calculus of gallbladder without cholecystitis without obstruction
CPT/HCPCS: 70491; 71260; 74160; Q9967

== ENCOUNTER 2022-04-16 05:10 | Inpatient (IN) | payer BC ==
[2022-04-16 05:28] VITALS: BMI 24.3
[2022-04-16] MEDS ORDERED: Ondansetron PF 4 MG/2 ML Vial IVP PRN (08:52)
[2022-04-16] MEDS ORDERED: Dextrose 5% in Water 1,000 ML IV PRN (08:52)
[2022-04-16] MEDS ORDERED: Ondansetron ODT 4 MG TAB PO PRN (08:52)
[2022-04-16] MEDS ORDERED: Dextrose 50% Abboject 50 ML SYRINGE SLOW IVP PRN (08:52)
[2022-04-16] MEDS ORDERED: Morphine 2 MG/ML VIAL SLOW IVP SCH (09:00)
[2022-04-16] MEDS: levETIRAcetam 500 MG TAB PO SCH ×2 (09:26→20:20)
[2022-04-16] MEDS: Carvedilol 6.25 MG TAB PO SCH ×2 (09:26→20:21)
[2022-04-16] MEDS: Furosemide 20 MG TAB PO SCH (09:26)
[2022-04-16] MEDS: HumaLOG 300 UNITS/3 ML VIAL SC PRN ×3 (11:48→20:20)
[2022-04-16] MEDS: VANCOMYCIN 1.25 GM/250 ML BAG 1.25 GM in Premix Bag 1 BAG IVPB SCH ×2 (13:19→22:01)
[2022-04-16] MEDS ORDERED: Piperacillin/Tazobactam 3.375 GM in Sodium Chloride 0.9% 100 ML IVPB SCH (14:00)
[2022-04-16] MEDS ORDERED: Phytonadione 10 MG in Sodium Chloride 0.9% 50 ML IVPB SCH (15:00)
[2022-04-16] MEDS: Piperacillin/Tazobactam 3.375 GM VIAL ONE ×2 (15:02→15:10)
[2022-04-16] MEDS: Morphine 2 MG/ML VIAL SLOW IVP PRN ×2 (15:19→20:16)
[2022-04-16] MEDS ORDERED: Piperacillin/Tazobactam 3.375 GM VIAL ONE (17:39)
[2022-04-16] MEDS: Piperacillin/Tazobactam 3.375 GM in Sodium Chloride 0.9% 100 ML IVPB SCH (17:47)
[2022-04-16] MEDS: Atorvastatin Calcium 40 MG TAB PO SCH (20:20)
[2022-04-16] MEDS ORDERED: Non-Formulary Item 1 EACH (Atorvastatin Calcium [Atorvastatin Calcium] 80 MG Tablet) PO SCH (21:00)
[2022-04-17] MEDS: Piperacillin/Tazobactam 3.375 GM in Sodium Chloride 0.9% 100 ML IVPB SCH ×3 (01:51→17:42)
[2022-04-17] MEDS: Morphine 2 MG/ML VIAL SLOW IVP PRN ×3 (04:17→17:38)
[2022-04-17] MEDS: HumaLOG 300 UNITS/3 ML VIAL SC PRN ×3 (04:18→17:14)
[2022-04-17] MEDS: VANCOMYCIN 1.25 GM/250 ML BAG 1.25 GM in Premix Bag 1 BAG IVPB SCH ×3 (05:31→22:13)
[2022-04-17] MEDS: Carvedilol 6.25 MG TAB PO SCH ×2 (06:13→20:55)
[2022-04-17 06:34] LABS: #Eosinphils 0.3 thou/uL (0.0-0.7); #Lymphocytes 1.3 thou/uL (1.20-3.40); #Monocytes 0.7 thou/uL (0.11-0.59); #Neutrophils 3.8 thou/uL (1.40-6.50); %Basophils 0.1 % (0.0-1.0); %Eosinophils 5.7 % (0.0-10.0); %Monocytes 10.7 % (0.0-10.0); %Neutrophils 61.6 % (42.0-75.0); Hemoglobin 9.5 g/dL (14.0-18.0); Mean Corpuscular HGB CONC 33.1 g/dL (32.0-36.0); Mean Corpuscular Hemoglobin 27.9 pg (27.0-31.0); Mean Corpuscular Volume 84.5 fL (78.0-98.0); Mean Platelet Volume 6.9 fL (7.4-10.4); Platelet Count 360 thou/uL (130-400); RBC Distribution Width 12.5 % (11.5-14.5); White Blood Cell (WBC) Count 6.1 thou/uL (4.8-10.8)
[2022-04-17 06:40] LABS: INR-International Normal Ratio 1.3; Prothrombin Time 16.4 sec (12.0-14.7)
[2022-04-17 06:41] LABS: PTT 51.6 sec (22.9-36.1)
[2022-04-17 06:52] LABS: Anion Gap 10 mmol/L (10-20); BUN (Urea Nitrogen) 13 mg/dL (8.9-20.6); Calc. Creatinine Clearance 151 mL/min (70-130); Calcium 8.6 mg/dL (7.8-10.44); Carbon Dioxide 27 mmol/L (22-29); Chloride 100 mmol/L (98-107); Estimated GFR 110; Glucose 277 mg/dL (70-105); Potassium 4.1 mmol/L (3.5-5.1); Sodium 133 mmol/L (136-145)
[2022-04-17] MEDS ORDERED: Piperacillin/Tazobactam 3.375 GM VIAL ONE (07:48)
[2022-04-17] MEDS: Sodium Chloride 0.9% 1,000 ML IV SCH ×2 (09:05→17:12)
[2022-04-17] MEDS: levETIRAcetam 500 MG TAB PO SCH ×2 (09:05→20:55)
[2022-04-17] MEDS: Furosemide 20 MG TAB PO SCH (09:05)
[2022-04-17 12:36] LABS: Vancomycin, Trough 19.2 ug/mL
[2022-04-17] MEDS ORDERED: Morphine 2 MG/ML VIAL SLOW IVP SCH (13:15)
[2022-04-17] MEDS: Gabapentin 300 MG CAP PO SCH ×2 (14:22→20:54)
[2022-04-17] MEDS ORDERED: Warfarin Sodium 2 MG TAB PO SCH (19:00)
[2022-04-17] MEDS: Atorvastatin Calcium 40 MG TAB PO SCH (20:54)
[2022-04-18] MEDS: Piperacillin/Tazobactam 3.375 GM in Sodium Chloride 0.9% 100 ML IVPB SCH ×3 (01:21→18:13)
[2022-04-18] MEDS: Morphine 2 MG/ML VIAL SLOW IVP PRN ×5 (02:08→21:00)
[2022-04-18] MEDS: Sodium Chloride 0.9% 1,000 ML IV SCH ×2 (04:36→13:52)
[2022-04-18] MEDS: VANCOMYCIN 1.25 GM/250 ML BAG 1.25 GM in Premix Bag 1 BAG IVPB SCH (04:39)
[2022-04-18] MEDS: HumaLOG 300 UNITS/3 ML VIAL SC PRN ×2 (04:40→10:40)
[2022-04-18 05:49] LABS: #Eosinphils 0.4 thou/uL (0.0-0.7); #Lymphocytes 1.5 thou/uL (1.20-3.40); #Monocytes 0.5 thou/uL (0.11-0.59); #Neutrophils 3.2 thou/uL (1.40-6.50); %Eosinophils 6.4 % (0.0-10.0); %Lymphocytes 27.8 % (21.0-51.0); %Monocytes 8.5 % (0.0-10.0); %Neutrophils 57.4 % (42.0-75.0); Hemoglobin 10.1 g/dL (14.0-18.0); Mean Corpuscular Hemoglobin 28.2 pg (27.0-31.0); Mean Corpuscular Volume 85.5 fL (78.0-98.0); Mean Platelet Volume 6.5 fL (7.4-10.4); Platelet Count 358 thou/uL (130-400); RBC Distribution Width 12.5 % (11.5-14.5); Red Blood Cell (RBC) Count 3.58 mill/uL (4.70-6.10); White Blood Cell (WBC) Count 5.6 thou/uL (4.8-10.8)
[2022-04-18 05:53] LABS: INR-International Normal Ratio 1.2; Prothrombin Time 15.4 sec (12.0-14.7)
[2022-04-18 06:12] LABS: Anion Gap 11 mmol/L (10-20); BUN (Urea Nitrogen) 12 mg/dL (8.9-20.6); Calc. Creatinine Clearance 136 mL/min (70-130); Calcium 8.9 mg/dL (7.8-10.44); Carbon Dioxide 26 mmol/L (22-29); Chloride 101 mmol/L (98-107); Estimated GFR 107; Glucose 358 mg/dL (70-105); Potassium 4.2 mmol/L (3.5-5.1); Sodium 134 mmol/L (136-145)
[2022-04-18] MEDS: Lisinopril 2.5 MG TAB PO SCH (08:27)
[2022-04-18] MEDS: Furosemide 20 MG TAB PO SCH (08:27)
[2022-04-18] MEDS: Carvedilol 6.25 MG TAB PO SCH ×2 (08:27→20:59)
[2022-04-18] MEDS: Spironolactone 25 MG TAB PO SCH (08:27)
[2022-04-18] MEDS: Aspirin 81 mg Enteric Coated Tablet PO SCH (08:27)
[2022-04-18] MEDS: Ascorbic Acid 500 mg Chewable Tablet PO SCH (08:27)
[2022-04-18] MEDS: Gabapentin 300 MG CAP PO SCH ×3 (08:27→20:59)
[2022-04-18] MEDS: levETIRAcetam 500 MG TAB PO SCH ×2 (08:28→20:59)
[2022-04-18] MEDS ORDERED: Bisacodyl 5 MG TAB PO SCH (10:15)
[2022-04-18 11:58] LABS: Vancomycin, Trough 24.4 ug/mL
[2022-04-18] MEDS: Vancomycin 1 GM in Premix Bag 1 BAG IVPB SCH ×2 (13:52→22:51)
[2022-04-18] MEDS ORDERED: Warfarin Sodium 2 MG TAB PO SCH ×2 (17:00)
[2022-04-18] MEDS ORDERED: hydrALAZINE 20 MG/ML VIAL SLOW IVP PRN (17:59)
[2022-04-18] MEDS ORDERED: Insulin Glargine 30 UNITS/0.3 ML VIAL SC SCH (18:15)
[2022-04-18] MEDS: Atorvastatin Calcium 40 MG TAB PO SCH (20:59)
[2022-04-19] MEDS: Sodium Chloride 0.9% 1,000 ML IV SCH ×3 (01:22→19:50)
[2022-04-19] MEDS: Piperacillin/Tazobactam 3.375 GM in Sodium Chloride 0.9% 100 ML IVPB SCH ×3 (01:22→18:08)
[2022-04-19] MEDS: Morphine 2 MG/ML VIAL SLOW IVP PRN ×5 (01:25→19:51)
[2022-04-19] MEDS: HumaLOG 300 UNITS/3 ML VIAL SC PRN ×3 (05:53→18:06)
[2022-04-19] MEDS: Vancomycin 1 GM in Premix Bag 1 BAG IVPB SCH ×2 (05:53→15:47)
[2022-04-19 06:33] LABS: #Eosinphils 0.3 thou/uL (0.0-0.7); #Lymphocytes 1.6 thou/uL (1.20-3.40); #Monocytes 0.7 thou/uL (0.11-0.59); #Neutrophils 5.1 thou/uL (1.40-6.50); %Basophils 0.1 % (0.0-1.0); %Eosinophils 3.7 % (0.0-10.0); %Lymphocytes 20.3 % (21.0-51.0); %Monocytes 9.5 % (0.0-10.0); %Neutrophils 66.4 % (42.0-75.0); Mean Corpuscular HGB CONC 33.5 g/dL (32.0-36.0); Mean Corpuscular Hemoglobin 28.5 pg (27.0-31.0); Mean Platelet Volume 6.7 fL (7.4-10.4); Platelet Count 365 thou/uL (130-400); RBC Distribution Width 12.8 % (11.5-14.5); White Blood Cell (WBC) Count 7.7 thou/uL (4.8-10.8)
[2022-04-19 06:55] LABS: Anion Gap 12 mmol/L (10-20); BUN (Urea Nitrogen) 15 mg/dL (8.9-20.6); Calc. Creatinine Clearance 145 mL/min (70-130); Calcium 8.8 mg/dL (7.8-10.44); Carbon Dioxide 26 mmol/L (22-29); Chloride 102 mmol/L (98-107); Estimated GFR 109; Glucose 241 mg/dL (70-105); Potassium 3.7 mmol/L (3.5-5.1); Sodium 136 mmol/L (136-145)
[2022-04-19 08:12] LABS: INR-International Normal Ratio 1.3; PTT 43.2 sec (22.9-36.1); Prothrombin Time 16.7 sec (12.0-14.7)
[2022-04-19] MEDS ORDERED: Insulin Glargine 30 UNITS/0.3 ML VIAL SC SCH ×2 (09:00→16:30)
[2022-04-19] MEDS: Lisinopril 2.5 MG TAB PO SCH (09:54)
[2022-04-19] MEDS: Gabapentin 300 MG CAP PO SCH ×3 (09:55→19:50)
[2022-04-19] MEDS: Carvedilol 6.25 MG TAB PO SCH ×2 (09:56→19:50)
[2022-04-19] MEDS: Furosemide 20 MG TAB PO SCH (09:58)
[2022-04-19] MEDS: Aspirin 81 mg Enteric Coated Tablet PO SCH (09:58)
[2022-04-19] MEDS: Spironolactone 25 MG TAB PO SCH (09:59)
[2022-04-19] MEDS: Ascorbic Acid 500 mg Chewable Tablet PO SCH (09:59)
[2022-04-19] MEDS: levETIRAcetam 500 MG TAB PO SCH ×2 (09:59→19:51)
[2022-04-19 13:46] LABS: Vancomycin, Trough 20.9 ug/mL
[2022-04-19] MEDS: Vancomycin HCl 750 MG in Sodium Chloride 0.9% 250 ML 250 ML IVPB SCH ×2 (15:18→22:18)
[2022-04-19] MEDS: Warfarin Sodium 10 MG TAB PO SCH (18:04)
[2022-04-19] MEDS: Atorvastatin Calcium 40 MG TAB PO SCH (19:50)
[2022-04-20] MEDS: Piperacillin/Tazobactam 3.375 GM in Sodium Chloride 0.9% 100 ML IVPB SCH ×3 (01:12→18:28)
[2022-04-20] MEDS: Morphine 2 MG/ML VIAL SLOW IVP PRN ×5 (01:15→21:33)
[2022-04-20] MEDS: Vancomycin HCl 750 MG in Sodium Chloride 0.9% 250 ML 250 ML IVPB SCH ×2 (06:23→15:33)
[2022-04-20] MEDS: Sodium Chloride 0.9% 1,000 ML IV SCH ×2 (06:23→18:28)
[2022-04-20] MEDS: HumaLOG 300 UNITS/3 ML VIAL SC PRN ×4 (06:26→21:27)
[2022-04-20 06:27] LABS: #Eosinphils 0.3 thou/uL (0.0-0.7); #Lymphocytes 1.5 thou/uL (1.20-3.40); #Monocytes 0.6 thou/uL (0.11-0.59); %Basophils 0.1 % (0.0-1.0); %Eosinophils 5.3 % (0.0-10.0); %Monocytes 9.9 % (0.0-10.0); %Neutrophils 61.7 % (42.0-75.0); Hemoglobin 10.1 g/dL (14.0-18.0); Mean Corpuscular HGB CONC 33.3 g/dL (32.0-36.0); Mean Corpuscular Hemoglobin 28.5 pg (27.0-31.0); Mean Corpuscular Volume 85.4 fL (78.0-98.0); Mean Platelet Volume 6.4 fL (7.4-10.4); Platelet Count 326 thou/uL (130-400); Red Blood Cell (RBC) Count 3.54 mill/uL (4.70-6.10); White Blood Cell (WBC) Count 6.4 thou/uL (4.8-10.8)
[2022-04-20 06:34] LABS: Anion Gap 13 mmol/L (10-20); BUN (Urea Nitrogen) 16 mg/dL (8.9-20.6); Calc. Creatinine Clearance 147 mL/min (70-130); Calcium 8.9 mg/dL (7.8-10.44); Carbon Dioxide 26 mmol/L (22-29); Chloride 103 mmol/L (98-107); Estimated GFR 109; Glucose 242 mg/dL (70-105); INR-International Normal Ratio 1.4; Potassium 3.7 mmol/L (3.5-5.1); Prothrombin Time 17.7 sec (12.0-14.7); Sodium 138 mmol/L (136-145)
[2022-04-20 06:35] LABS: PTT 41.3 sec (22.9-36.1)
[2022-04-20] MEDS ORDERED: Insulin Glargine 30 UNITS/0.3 ML VIAL SC SCH ×2 (09:00→17:45)
[2022-04-20] MEDS ORDERED: Enoxaparin Sodium 100 MG/ML SYRINGE SC SCH (09:45)
[2022-04-20] MEDS: Bisacodyl 5 MG TAB PO PRN (10:20)
[2022-04-20] MEDS: levETIRAcetam 500 MG TAB PO SCH ×2 (10:21→21:26)
[2022-04-20] MEDS: Gabapentin 300 MG CAP PO SCH ×3 (10:21→21:26)
[2022-04-20] MEDS: Carvedilol 6.25 MG TAB PO SCH ×2 (10:21→21:26)
[2022-04-20] MEDS: Spironolactone 25 MG TAB PO SCH (10:21)
[2022-04-20] MEDS: Ascorbic Acid 500 mg Chewable Tablet PO SCH (10:21)
[2022-04-20] MEDS: Aspirin 81 mg Enteric Coated Tablet PO SCH (10:21)
[2022-04-20] MEDS: Furosemide 20 MG TAB PO SCH (10:22)
[2022-04-20] MEDS: Lisinopril 2.5 MG TAB PO SCH (10:22)
[2022-04-20 13:41] LABS: Vancomycin, Trough 13.7 ug/mL
[2022-04-20] MEDS: Vancomycin 1 GM in Premix Bag 1 BAG IVPB SCH ×2 (15:24→22:58)
[2022-04-20] MEDS: Warfarin Sodium 10 MG TAB PO SCH (18:29)
[2022-04-20] MEDS: Atorvastatin Calcium 40 MG TAB PO SCH (21:26)
[2022-04-20] MEDS: Enoxaparin Sodium 100 MG/ML SYRINGE SC SCH (21:32)
[2022-04-21] MEDS: Piperacillin/Tazobactam 3.375 GM in Sodium Chloride 0.9% 100 ML IVPB SCH ×2 (02:05→11:01)
[2022-04-21] MEDS: Sodium Chloride 0.9% 1,000 ML IV SCH ×3 (02:05→23:24)
[2022-04-21] MEDS: Vancomycin 1 GM in Premix Bag 1 BAG IVPB SCH (06:13)
[2022-04-21 06:45] LABS: #Basophils 0.1 thou/uL (0.0-0.2); #Eosinphils 0.3 thou/uL (0.0-0.7); #Lymphocytes 1.6 thou/uL (1.20-3.40); #Monocytes 0.7 thou/uL (0.11-0.59); %Basophils 0.9 % (0.0-1.0); %Eosinophils 3.4 % (0.0-10.0); %Lymphocytes 20.6 % (21.0-51.0); %Monocytes 9.5 % (0.0-10.0); %Neutrophils 65.6 % (42.0-75.0); Hemoglobin 9.8 g/dL (14.0-18.0); Mean Corpuscular HGB CONC 32.7 g/dL (32.0-36.0); Mean Corpuscular Hemoglobin 27.9 pg (27.0-31.0); Mean Corpuscular Volume 85.2 fL (78.0-98.0); Mean Platelet Volume 6.4 fL (7.4-10.4); Platelet Count 341 thou/uL (130-400); RBC Distribution Width 13.2 % (11.5-14.5); Red Blood Cell (RBC) Count 3.51 mill/uL (4.70-6.10); White Blood Cell (WBC) Count 7.7 thou/uL (4.8-10.8)
[2022-04-21 06:52] LABS: INR-International Normal Ratio 1.7; Prothrombin Time 20.4 sec (12.0-14.7)
[2022-04-21 07:03] LABS: Anion Gap 12 mmol/L (10-20); BUN (Urea Nitrogen) 17 mg/dL (8.9-20.6); Calc. Creatinine Clearance 138 mL/min (70-130); Calcium 8.7 mg/dL (7.8-10.44); Carbon Dioxide 27 mmol/L (22-29); Chloride 103 mmol/L (98-107); Estimated GFR 107; Glucose 193 mg/dL (70-105); Potassium 3.8 mmol/L (3.5-5.1); Sodium 138 mmol/L (136-145)
[2022-04-21] MEDS: Morphine 2 MG/ML VIAL SLOW IVP PRN ×4 (08:27→21:03)
[2022-04-21] MEDS: Aspirin 81 mg Enteric Coated Tablet PO SCH (08:47)
[2022-04-21] MEDS: Ascorbic Acid 500 mg Chewable Tablet PO SCH (08:47)
[2022-04-21] MEDS: Spironolactone 25 MG TAB PO SCH (08:47)
[2022-04-21] MEDS: Lisinopril 2.5 MG TAB PO SCH (08:47)
[2022-04-21] MEDS: Carvedilol 6.25 MG TAB PO SCH ×2 (08:47→20:58)
[2022-04-21] MEDS: Gabapentin 300 MG CAP PO SCH ×3 (08:48→20:57)
[2022-04-21] MEDS: Enoxaparin Sodium 100 MG/ML SYRINGE SC SCH ×2 (08:48→20:58)
[2022-04-21] MEDS: levETIRAcetam 500 MG TAB PO SCH ×2 (08:48→20:57)
[2022-04-21] MEDS: Furosemide 20 MG TAB PO SCH (08:48)
[2022-04-21] MEDS: Insulin Glargine 30 UNITS/0.3 ML VIAL SC SCH (08:49)
[2022-04-21] MEDS: Bisacodyl 5 MG TAB PO PRN (11:01)
[2022-04-21] MEDS: HumaLOG 300 UNITS/3 ML VIAL SC PRN (12:25)
[2022-04-21 13:29] LABS: Vancomycin, Trough 20.2 ug/mL
[2022-04-21] MEDS ORDERED: VANCOMYCIN 1.25 GM/250 ML BAG 1.25 GM in Premix Bag 1 BAG IVPB SCH (14:00)
[2022-04-21] MEDS: Warfarin Sodium 10 MG TAB PO SCH (17:25)
[2022-04-21] MEDS: Amoxicillin/Potassium Clav 875 MG TAB PO SCH (20:57)
[2022-04-21] MEDS: Ciprofloxacin 500 MG TAB PO SCH (20:58)
[2022-04-21] MEDS: Atorvastatin Calcium 40 MG TAB PO SCH (20:58)
[2022-04-22] MEDS: Morphine 2 MG/ML VIAL SLOW IVP PRN ×3 (01:02→10:18)
[2022-04-22] MEDS: Sodium Chloride 0.9% 1,000 ML IV SCH (01:03)
[2022-04-22] MEDS: Ciprofloxacin 500 MG TAB PO SCH (05:58)
[2022-04-22 06:30] LABS: #Eosinphils 0.2 thou/uL (0.0-0.7); #Lymphocytes 1.6 thou/uL (1.20-3.40); #Monocytes 0.6 thou/uL (0.11-0.59); #Neutrophils 3.6 thou/uL (1.40-6.50); %Basophils 0.5 % (0.0-1.0); %Eosinophils 3.7 % (0.0-10.0); %Lymphocytes 25.8 % (21.0-51.0); %Monocytes 9.6 % (0.0-10.0); %Neutrophils 60.3 % (42.0-75.0); Hemoglobin 9.7 g/dL (14.0-18.0); Mean Corpuscular HGB CONC 32.1 g/dL (32.0-36.0); Mean Corpuscular Hemoglobin 27.8 pg (27.0-31.0); Mean Corpuscular Volume 86.5 fL (78.0-98.0); Mean Platelet Volume 6.4 fL (7.4-10.4); Platelet Count 298 thou/uL (130-400); RBC Distribution Width 13.6 % (11.5-14.5); Red Blood Cell (RBC) Count 3.49 mill/uL (4.70-6.10)
[2022-04-22 06:53] LABS: Anion Gap 13 mmol/L (10-20); BUN (Urea Nitrogen) 15 mg/dL (8.9-20.6); Calc. Creatinine Clearance 159 mL/min (70-130); Calcium 8.7 mg/dL (7.8-10.44); Carbon Dioxide 27 mmol/L (22-29); Chloride 103 mmol/L (98-107); Estimated GFR 112; Glucose 199 mg/dL (70-105); Potassium 3.7 mmol/L (3.5-5.1); Sodium 139 mmol/L (136-145)
[2022-04-22 06:57] LABS: INR-International Normal Ratio 1.9
[2022-04-22 08:49] VITALS: TEMP 97.8
[2022-04-22] MEDS: Lisinopril 2.5 MG TAB PO SCH (09:02)
[2022-04-22] MEDS: Ascorbic Acid 500 mg Chewable Tablet PO SCH (09:02)
[2022-04-22] MEDS: Furosemide 20 MG TAB PO SCH (09:02)
[2022-04-22] MEDS: levETIRAcetam 500 MG TAB PO SCH (09:02)
[2022-04-22] MEDS: Amoxicillin/Potassium Clav 875 MG TAB PO SCH (09:02)
[2022-04-22] MEDS: Spironolactone 25 MG TAB PO SCH (09:02)
[2022-04-22] MEDS: Aspirin 81 mg Enteric Coated Tablet PO SCH (09:02)
[2022-04-22] MEDS: Gabapentin 300 MG CAP PO SCH (09:02)
[2022-04-22] MEDS: Enoxaparin Sodium 100 MG/ML SYRINGE SC SCH (09:03)
[2022-04-22] MEDS: Insulin Glargine 30 UNITS/0.3 ML VIAL SC SCH (09:03)
[2022-04-22] MEDS: Carvedilol 6.25 MG TAB PO SCH (09:07)
[2022-04-22 09:08] VITALS: BP 149/76
== END 2022-04-22 13:52 | disposition home or self-care (01) | DRG 638 ==
LOC: T4-B 05:10 → INTOOBSV 05:10 → OBSVTOIN 04-17 15:04
PROVIDERS: ADMIT Internal Medicine; ATTEND Internal Medicine
DX: E11.69 Type 2 diabetes mellitus with other specified complication (principal); M86.171 Other acute osteomyelitis, right ankle and foot; M60.073 Infective myositis, right foot; I42.9 Cardiomyopathy, unspecified; L03.115 Cellulitis of right lower limb; E87.1 Hypo-osmolality and hyponatremia; Z66 Do not resuscitate; Z20.822 Contact with and (suspected) exposure to COVID-19; C76.0 Malignant neoplasm of head, face and neck; I50.9 Heart failure, unspecified; E11.65 Type 2 diabetes mellitus with hyperglycemia; I11.0 Hypertensive heart disease with heart failure; E11.628 Type 2 diabetes mellitus with other skin complications; G40.909 Epilepsy, unspecified, not intractable, without status epilepticus; Z79.01 Long term (current) use of anticoagulants; Z79.02 Long term (current) use of antithrombotics/antiplatelets; Z86.73 Personal history of transient ischemic attack (TIA), and cerebral infarction without residual deficits; Z79.82 Long term (current) use of aspirin; Z79.84 Long term (current) use of oral hypoglycemic drugs; Z79.4 Long term (current) use of insulin; Z90.09 Acquired absence of other part of head and neck
CPT/HCPCS: 36415; 36416; 80048; 80202; 85025; 85610; 85730; 86140; 93306; 96365; 96375; 96376; 97139; G0378; J1650; J1815; J2270; J2543; J3370; J3430; J3490; J7050